=== PATIENT | male | born 1960 | race Caucasian/White ===

== ENCOUNTER → 2018-06-18 | Day surgery (SDC) | payer OTHER ==
[~2018-06-18] MED LIST: ASPI-630 PO; CHOL500045 PO; IV RINGERS,LACTATED 1000ML 1,000 ML IV SCH; METO-239 PO; PARO25TA12 PO; PROPOFOL 20 ML IV ONE; TAMS0.4C2 PO
[2018-06-18 16:40] VITALS: BP 154/89
--- NOTE | 2018-06-19 03:32 | CONS ---
DATE OF CONSULTATION: 06/18/2018 REASON FOR CONSULTATION: Colorectal screening. HISTORY OF PRESENT ILLNESS: This is a 58-year-old male with past medical history significant for knee replacements, vasectomy, hypertension as well as anxiety, depression, seen for interval colonoscopy. Last exam was 10 years ago, which was unrevealing for polyps or cancer. He has done well without diarrhea or constipation or bleeding. No family history of colon polyps or colon cancer is encountered. He is otherwise without additional complaints. PAST MEDICAL HISTORY: Hypertension, hyperlipidemia, osteoarthrosis, status post knee replacement and vasectomy. ALLERGIES: None. MEDICATIONS: Include aspirin, vitamin D, metoprolol, paroxetine, tamsulosin. SOCIAL HISTORY: He is a nonsmoker, nondrinker at this point. FAMILY HISTORY: Significant for esophageal cancer in his mother, high blood pressure with both parents. Heart attack with a brother. REVIEW OF SYSTEMS: As per records. PHYSICAL EXAMINATION: GENERAL: Reveals a well-nourished, well-developed male who is alert and cooperative, in no acute distress. VITAL SIGNS: Temperature 98.5, pulse 62, respirations 16. HEENT: Reveals normocephalic and atraumatic head. Pupils and extraocular muscles are not tested. Sclerae anicteric. NECK: Supple. LUNGS: Clear. CARDIOVASCULAR: Reveals an S1, S2 without S3, S4 or appreciable murmur. ABDOMEN: Reveals soft abdomen, normal bowel sounds without appreciable hepatosplenomegaly. EXTREMITIES: Reveals no cyanosis, clubbing, edema. IMPRESSION: Colorectal screen is warranted at this time. Risks and benefits of the procedure including risk of hemorrhage and perforation discussed. The patient is willing to proceed at this time. NIC BATES MD DR: BALWINDER/marilou JOB#: [id number] / [id number]
== END | disposition home or self-care (01) ==
LOC: SURG 15:04
PROVIDERS: ATTEND Internal Medicine Gastroenterology
DX: Z12.11 Encounter for screening for malignant neoplasm of colon (principal); K57.30 Diverticulosis of large intestine without perforation or abscess without bleeding; K64.0 First degree hemorrhoids; I10 Essential (primary) hypertension; F41.9 Anxiety disorder, unspecified; F32.9 Major depressive disorder, single episode, unspecified; E78.5 Hyperlipidemia, unspecified; Z98.52 Vasectomy status; M19.90 Unspecified osteoarthritis, unspecified site; Z79.82 Long term (current) use of aspirin; Z79.899 Other long term (current) drug therapy; Z80.0 Family history of malignant neoplasm of digestive organs; Z82.49 Family history of ischemic heart disease and other diseases of the circulatory system
CPT/HCPCS: 45378; J2704